=== PATIENT | female | born 1935 | race Hispanic/Latino ===

== ENCOUNTER 2018-08-11 12:40 | Outpatient (CLI) | payer MEDICARE ==
--- NOTE | 2018-08-11 16:39 | PET ---
PET CT FROM VERTEX OF SKULL THROUGH MID THIGHS: Date: 08/11/18 INDICATION: History of malignant neoplasm of the salivary glands. TECHNIQUE: Multiple PET images from the vertex through the mid thighs following IV administration of 11.4 mCi F1 8-FDG IV. CT images were obtained for attenuation correction purposes only. FINDINGS: Biodistribution for the examination appears acceptable. Head/Neck: There is a large, slightly hyperdense, hypermetabolic mass centered within the deep and superficial l obes of the left parotid gland measuring 4.6 cm with a peak SUV uptake of 12 and a mean uptake of 10. 78. There are numerous enlarged left Level IIA and IIB enlarged lymph nodes. One of the largest left leve l IIA lymph node is seen on image [address] series measuring 1.7 cm with a peak SUV uptake o f 10.88 and a mean uptake of 9.65. The largest left Level IIB lymph node measures 11.0 mm on image 59 with a peak SUV uptake of 8.09 and a mean uptake of 5.89. No additional hypermetabolic lymphadenopat hy or mass is demonstrated. Chest: No hypermetabolic pulmonary nodule or pleural effusion is demonstrated. No hypermetabolic lymphadenop athy is present. Abdomen/Pelvis: No hypermetabolic lymphadenopathy or mass is identified. No ascites is present. There is moderate dis tention of the bladder, which is nonspecific. Skin/Osseous Structures: No hypermetabolic skin or osseous lesion is identified. IMPRESSION: Abnormal PET CT: 1. There is a large hypermetabolic mass involving the left parotid gland, likely corresponding to th e patient's known salivary gland malignancy. 2. There are multiple enlarged hypermetabolic left Level IIA and IIB lymph nodes consistent with reg ional lymph node spread. 3. No evidence of hypermetabolic metastatic disease to the chest, abdomen, pelvis, skin , or osseous structures. POS: [facility]
== END 2018-08-11 12:41 | disposition home or self-care (01) ==
LOC: PET 12:40
PROVIDERS: ATTEND Internal Medicine Hematology & Oncology
DX: C76.0 Malignant neoplasm of head, face and neck (principal); K11.8 Other diseases of salivary glands
CPT/HCPCS: 78815; A9552

== ENCOUNTER 2018-08-24 08:13 | Outpatient (CLI) | payer MEDICARE ==
--- NOTE | 2018-08-24 12:07 | MRI ---
MRI BRAIN WITH AND WITHOUT CONTRAST: Date: 08/24/18 INDICATIONS: Malignant neoplasm of parotid gland. FINDINGS: Images through the base of the skull reveal abnormal signal involving the left parotid gland. This gl and shows diffuse enhancement and enlarged. This parotid mass involves the deep and superficial lobe s of the parotid on the left. The deep lobe is significantly enlarged on the left compared to the rig ht with extension into the stock associate space. No definite involvement of the pterygoid muscles identif ied. The ventricles have normal size and position. There is mild cortical atrophy. Mild chronic ischemic w holly matter change. No evidence of restricted diffusion. There is no evidence of brain parenchymal en hancement or mass. There is no evidence of infarct. IMPRESSION: 1. The parotid gland is partially imaged on this exam. The parotid gland shows diffuse enlargement a nd enhancement with involvement of both superficial and deep parotid lobes. 2. Brain shows mild chronic ischemic change without evidence of brain mass or metastasis. POS: [facility]
--- NOTE | 2018-08-24 12:33 | MRI ---
MRI NECK WITH AND WITHOUT CONTRAST: Multiplanar, multisequential imaging of neck obtained. Postcontrast images were obtained after admin istration of IV MultiHance. INDICATION: Malignant neoplasm of parotid gland. COMPARISON: Correlation is made to PET CT of 08/11/2018. FINDINGS: Diffuse abnormal signal involves the entire left parotid gland. There is enlargement and abnormal en hancement involving superficial and deep lobes of the parotid. Findings are consistent with diffuse left parotid neoplasm. There are numerous enlarged lymph nodes along the inferior margin of this left parotid gland. These would represent enlarged level II lymph nodes on the left neck with a large 2A lymph node measu ring up to 2.0 cm. Numerous other lymph nodes in this region measure 1.0 to 1.5 cm. The submandibular glands unremarkable. Thyroid unremarkable. No other significant adenopathy is seen in the neck at the other lymph node levels. Nasopharynx and hypopharynx unremarkable. Retropharyngeal space and parapharyngeal space unremarkabl e. The hypopharynx and larynx are unremarkable. IMPRESSION: Diffusely enlarged and abnormally enhancing left parotid gland involving both superficial and deep lo bes. There is associated adenopathy along the inferior SPECT of this left parotid gland at level 2 c orresponding to the PET scan findings. POS: [facility]
[2018-08-24] MEDS ORDERED: Gadobenate Dimeglumine 529 MG/1 ML (20ML VIAL) ONE (15:17)
== END 2018-08-24 08:14 | disposition home or self-care (01) ==
LOC: MRI 08:13
PROVIDERS: ATTEND Internal Medicine Hematology & Oncology
DX: C07 Malignant neoplasm of parotid gland (principal)
CPT/HCPCS: 70543; 70553; A9579

== ENCOUNTER 2018-08-26 09:15 | Day surgery (SDC) | payer MEDICARE ==
[2018-08-25 17:04] VITALS: BMI 21.3
[2018-08-26] MEDS ORDERED: Bupivacaine/Epinephrine 0.25% 30 ML VIAL ONE (09:56)
[2018-08-26] MEDS ORDERED: Lidocaine 2% PF Inj 2 ML VIAL ONE (09:56)
[2018-08-26 09:58] LABS: #Eosinphils 0.2 thou/uL (0.0-0.7); #Monocytes 0.7 thou/uL (0.11-0.59); #Neutrophils 2.5 thou/uL (1.40-6.50); %Basophils 0.8 % (0.0-1.0); %Eosinophils 3.3 % (0.0-10.0); %Lymphocytes 35.9 % (21.0-51.0); %Monocytes 13.4 % (0.0-10.0); %Neutrophils 46.6 % (42.0-75.0); Hemoglobin 11.4 g/dL (12.0-16.0); Mean Corpuscular HGB CONC 33.2 g/dL (32.0-36.0); Mean Corpuscular Hemoglobin 30.6 pg (27.0-31.0); Mean Corpuscular Volume 92.3 fL (78.0-98.0); Mean Platelet Volume 6.8 fL (7.4-10.4); Platelet Count 313 thou/uL (130-400); RBC Distribution Width 12.1 % (11.5-14.5); Red Blood Cell (RBC) Count 3.73 mill/uL (4.20-5.40); White Blood Cell (WBC) Count 5.5 thou/uL (4.8-10.8)
[2018-08-26] MEDS ORDERED: CEFAZOLIN/Water 2 GM/20 ML SYRINGE ONE (10:05)
[2018-08-26 10:13] LABS: Anion Gap 12 mmol/L (10-20); BUN (Urea Nitrogen) 29 mg/dL (9.8-20.1); Calc. Creatinine Clearance 36 mL/min (70-130); Calcium 9.7 mg/dL (7.8-10.44); Carbon Dioxide 26 mmol/L (23-31); Chloride 101 mmol/L (98-107); Estimated GFR-MDRD 46; Glucose 106 mg/dL (83-110); Potassium 4.3 mmol/L (3.5-5.1); Sodium 135 mmol/L (136-145)
--- NOTE | 2018-08-26 11:53 | RAD ---
PORTABLE CHEST: HISTORY: Status post Mediport placement. FINDINGS: Heart size is at the upper limits of normal. There are atherosclerotic changes of the aorta. The maddi ngs are clear of infiltrates. A right-sided Mediport catheter has been placed. The catheter tip ove rlies the superior vena cava. No signs of pneumothorax. The bones appear demineralized. IMPRESSION: Placement of right-sided Mediport catheter. The catheter tip overlies the superior vena cava. There are no sign of pneumothorax. POS: [facility]
[2018-08-26] MEDS ORDERED: Ondansetron HCl/PF 4 MG/2 ML Vial ONE (17:26)
[2018-08-26] MEDS ORDERED: PROPOFOL 200 MG/20 ML VIAL ONE (17:26)
--- NOTE | 2018-08-27 16:37 | PDOC.OP ---
Operative Note - Operative Note Operative Note: PROCEDURE: Right subclavian MediPort placement with fluoroscopic guidance SURGEON: Imelda Holguin M.D. 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 This is felt likely to be metastatic from a lesion on her left eyelid. Chemotherapy has been recommended and the oncologist has requested MediPort placement for this. OPERATIVE PROCEDURE IN DETAIL: After informed consent was obtained and appropriate preoperative antibiotics were administered, the patient was taken to the operating room and placed in supine position and monitored anesthesia care was administered. The patient was then placed in Trendelenburg position and the subclavian vein accessed easily on the first attempt with excellent flow of dark venous non-pulsatile blood. A wire threaded easily and was confirmed to be in the superior vena cava by fluoroscopy. Additional local anesthesia was infused to the skin and subcutaneous tissues lateral and inferior to the access site. The skin incision was extended from the wire laterally and a subcutaneous pocket developed inferiorly. A Mediport was obtained and confirmed to fit in the subcutaneous pocket. This was secured inferiorly to the pectoralis fascia with a Prolene suture, which was clamped, but not tied. The dilator and sheath were then placed over the wire and the dilator and wire removed leaving the sheath in place. The clamped MediPort tubing was tunneled through the sheath, which was then split and removed leaving the MediPort tubing in place. The tubing was adjusted until the tip was confirmed by fluoroscopy to be in the superior vena cava just above the atrium. The tubing was clamped at the skin level and cut and the tubing secured to the port, which was then placed in the subcutaneous pocket. The previously placed suture was secured and two additional sutures were placed to fix the port in place within the pocket. The port was aspirated with the Hawkins needle and had excellent flow of dark venous non-pulsatile blood and easily flushed without resistance. The subcutaneous tissues were closed with a running Monocryl suture, following which the skin was closed with a running subcuticular Monocryl suture. Dermabond dressings were placed and the hub was again accessed through the skin and confirmed to easily aspirate and easily flush. The course of the catheter was confirmed by fluoroscopy to be smooth with the tip appropriately located in the superior vena cava. The patient was taken her back to the day stay unit in good condition. Estimated blood loss was minimal. There were no complications. There were no specimens.
== END 2018-08-26 12:20 | disposition home or self-care (01) ==
LOC: SDC 09:15
PROVIDERS: ATTEND Surgery
PROC: 02HV33Z Insertion of Infusion Device into Superior Vena Cava, Percutaneous Approach (ICD-10-PCS; principal; 2018-08-26)
DX: C07 Malignant neoplasm of parotid gland (principal); C44.99 Other specified malignant neoplasm of skin, unspecified; I10 Essential (primary) hypertension; E11.40 Type 2 diabetes mellitus with diabetic neuropathy, unspecified; E78.5 Hyperlipidemia, unspecified; G40.909 Epilepsy, unspecified, not intractable, without status epilepticus; Z79.899 Other long term (current) drug therapy; Z88.2 Allergy status to sulfonamides; Z88.8 Allergy status to other drugs, medicaments and biological substances; Z91.018 Allergy to other foods
CPT/HCPCS: 36415; 71045; 80048; 85025; J1642

== ENCOUNTER 2018-12-17 09:08 | Outpatient (CLI) | payer MEDICARE ==
--- NOTE | 2018-12-17 13:40 | PET ---
RADIONUCLIDE PET SCAN WITH CT ATTENUATION CORRECTION: HISTORY: Left parotid cancer with chemotherapy. Restaging. COMPARISON: 08/11/18. FINDINGS: At the left side of the face, at the parotid bed, there is now only minimally increased radiotracer u ptake. Maximum SUV along the posterior margin of the area where previous abnormal uptake is present, is now 2.8. No new abnormalities are evident about the head or neck. Physiologic uptake of radiotracer within the enteric system and along each urinary tract. Now within the far anterior margin of the lateral segment left liver lobe, a focus of increased radiotracer upta ke shows a maximum SUV of 4.2, and is associated with a small lobulation on the nondiagnostic CT atte nuation correction images. A well-defined mass is not visible. Within the anterior segment of right liver lobe, immediately posterior to the gallbladder fossa, is a focus of increased radiotracer uptake with maximum SUV of 8.1. A subtle hypodense mass is present on the nondiagnostic CT attenuation correction images. No other new areas of abnormal uptake are apparent. IMPRESSION: 1. Two new hypermetabolic lesions within the liver as detailed above. Suspicious for metastatic dise ase. Please consider dedicated CT liver, with and without iv contrast, for better characterization. 2. Interval resolution of the large mass and abnormal activity at the left parotid gland. Now only m inimally increased uptake. POS: [facility]
== END 2018-12-17 09:09 | disposition home or self-care (01) ==
LOC: PET 09:08
PROVIDERS: ATTEND Internal Medicine Hematology & Oncology
DX: C07 Malignant neoplasm of parotid gland (principal); K76.9 Liver disease, unspecified; R91.8 Other nonspecific abnormal finding of lung field
CPT/HCPCS: 78815; A9552; 80053; 84443

== ENCOUNTER 2019-01-12 08:48 | Outpatient (CLI) | payer MEDICARE ==
[2019-01-12] MEDS ORDERED: Gadobenate Dimeglumine 529 MG/1 ML (20ML VIAL) ONE (10:05)
--- NOTE | 2019-01-12 10:42 | MRI ---
MRI OF THE ABDOMEN WITHOUT AND WITH CONTRAST: Date: 01/12/19 COMPARISON: PET CT dated 12/17/18. HISTORY: Neoplasm of the parotid gland. Hypermetabolic lesions in the liver seen on prior PET CT. The patient is asymptomatic. TECHNIQUE: Multiplanar, multisequence MR images were obtained in the abdomen without and with IV Contrast. FINDINGS: There are approximately 8-10 well circumscribed lesions scattered throughout the liver. The largest s een in the right lobe measuring 2.4 cm in greatest dimension. These lesions demonstrate enhancement a nd do not demonstrate significant washout. No fill-in of the lesions is seen on the delayed phase eliseo ges. These lesions are most suspicious for hepatic metastatic disease. No biliary dilatation is seen. The gallbladder, kidneys, adrenal glands, spleen, and pancreas are unr emarkable. No abdominal adenopathy is seen. No marrow signal abnormality is present. The visualized inferior thorax is unremarkable. IMPRESSION: Scattered lesions throughout the liver are suspicious for hepatic metastasis. POS: [facility]
== END 2019-01-12 08:49 | disposition home or self-care (01) ==
LOC: BICMRI 08:48
PROVIDERS: ATTEND Internal Medicine Hematology & Oncology
DX: C07 Malignant neoplasm of parotid gland (principal); K76.9 Liver disease, unspecified
CPT/HCPCS: 74183; A9577

== ENCOUNTER 2019-01-26 08:33 | Day surgery (SDC) | payer MEDICARE ==
[2019-01-25 09:33] VITALS: BMI 23.8
[2019-01-26 09:05] LABS: Hemoglobin 10.1 g/dL (12.0-16.0); Mean Corpuscular HGB CONC 31.8 g/dL (32.0-36.0); Mean Corpuscular Hemoglobin 30.3 pg (27.0-31.0); Mean Corpuscular Volume 95.3 fL (78.0-98.0); Mean Platelet Volume 6.1 fL (7.4-10.4); Platelet Count 175 thou/uL (130-400); RBC Distribution Width 12.4 % (11.5-14.5); Red Blood Cell (RBC) Count 3.32 mill/uL (4.20-5.40)
[2019-01-26 09:08] LABS: PTT 25.6 SEC (22.9-36.1); Prothrombin Time 13.1 SEC (12.0-14.7)
[2019-01-26] MEDS ORDERED: Sodium Bicarbonate 2.5 MEQ/5 ML VIAL ONE (10:09)
[2019-01-26] MEDS ORDERED: Midazolam HCl 2 mg/2 ml Vial ONE (10:09)
[2019-01-26] MEDS ORDERED: Fentanyl 100 MCG/2 ML VIAL ONE (10:10)
[2019-01-26 11:31] VITALS: BP 138/59; TEMP 98
--- NOTE | 2019-01-26 13:31 | CT ---
CT GUIDED LIVER MASS BIOPSY: Date: 01/26/19 HISTORY: New hepatic masses which are FDG-avid. Primary parotid cancer. COMPARISON: Multiple prior examinations, most recent MRI 01/12/19. FINDINGS: The patient was brought to the CT suite. All questions were answered. Informed consent obtained. Time out performed. The largest lesion within hepatic segment V, adjacent to the gallbladder, was accessed using an 18 ga uge BioPince needle. A total of two cores were obtained. Pathology confirmed adequacy. This was done after adequate local anesthesia with 6 mL of buffered lidocaine. IMPRESSION: Technically successful CT guided liver mass biopsy. Pathology confirmed adequacy. POS: [facility]
== END 2019-01-26 13:10 | disposition home or self-care (01) ==
LOC: RAD 08:33
PROVIDERS: ATTEND Radiology Diagnostic Radiology
PROC: 0FB13ZX Excision of Right Lobe Liver, Percutaneous Approach, Diagnostic (ICD-10-PCS; principal; 2019-01-26)
DX: C22.7 Other specified carcinomas of liver (principal); I10 Essential (primary) hypertension; E11.9 Type 2 diabetes mellitus without complications; E78.00 Pure hypercholesterolemia, unspecified; G40.909 Epilepsy, unspecified, not intractable, without status epilepticus; Z90.49 Acquired absence of other specified parts of digestive tract; Z88.1 Allergy status to other antibiotic agents; Z88.2 Allergy status to sulfonamides; Z88.6 Allergy status to analgesic agent; Z91.018 Allergy to other foods; Z85.858 Personal history of malignant neoplasm of other endocrine glands; Z92.21 Personal history of antineoplastic chemotherapy; Z92.3 Personal history of irradiation; Z79.899 Other long term (current) drug therapy; Z98.890 Other specified postprocedural states
CPT/HCPCS: 36415; 47000; 77002; 85027; 85610; 85730; 88305; 88333; 88334; 88341; 88342; J2250; J3010

== ENCOUNTER 2019-03-24 10:05 | Day surgery (SDC) | payer MEDICARE ==
[~2019-03-24 10:05] MED LIST: CARBOPLATIN IVPB SCH; Palonosetron HCl 0.25 MG in Sodium Chloride 0.9% 50 ML IVPB SCH; SODIUM CHLORIDE 0.9% IVPB SCH
[2019-03-24] MEDS ORDERED: Sodium Chloride 0.9% 20 ML ONE (10:41)
[2019-03-24] MEDS ORDERED: CARBOPLATIN IVPB SCH (11:30)
[2019-03-24] MEDS ORDERED: SODIUM CHLORIDE 0.9% IVPB SCH (11:30)
[2019-03-24 12:06] VITALS: BP 127/60; TEMP 97.8
== END 2019-03-24 13:29 | disposition home or self-care (01) ==
LOC: ONC/OP 10:05
PROVIDERS: ATTEND Internal Medicine Hematology & Oncology
DX: Z51.11 Encounter for antineoplastic chemotherapy (principal); C07 Malignant neoplasm of parotid gland; C7A.1 Malignant poorly differentiated neuroendocrine tumors; Z88.1 Allergy status to other antibiotic agents; Z88.8 Allergy status to other drugs, medicaments and biological substances
CPT/HCPCS: 36415; 80053; 82248; 83615; 84100; 84550; 96375; 96413; 96417; J1100; J1642; J2469; J7050; J9045; J9181

== ENCOUNTER 2019-03-25 09:55 | Day surgery (SDC) | payer MEDICARE ==
[2019-03-25] MEDS ORDERED: Sodium Chloride 0.9% 20 ML ONE (10:24)
[2019-03-25 10:33] VITALS: BP 108/53; TEMP 98.3
== END 2019-03-25 15:25 | disposition home or self-care (01) ==
LOC: ONC/OP 09:55
PROVIDERS: ATTEND Internal Medicine Hematology & Oncology
DX: Z51.11 Encounter for antineoplastic chemotherapy (principal); C07 Malignant neoplasm of parotid gland; C7A.1 Malignant poorly differentiated neuroendocrine tumors; Z88.2 Allergy status to sulfonamides; Z88.8 Allergy status to other drugs, medicaments and biological substances; Z91.018 Allergy to other foods
CPT/HCPCS: 96413; J1642; J7050; J9181

== ENCOUNTER 2019-03-26 09:11 | Day surgery (SDC) | payer MEDICARE ==
[~2019-03-26 09:11] MED LIST changes: -CARBOPLATIN IVPB SCH; -Palonosetron HCl 0.25 MG in Sodium Chloride 0.9% 50 ML IVPB SCH; +Pegfilgrastim Onpro 6 MG/0.6 ML SQ SCH; -SODIUM CHLORIDE 0.9% IVPB SCH
[2019-03-26] MEDS ORDERED: Sodium Chloride 0.9% 20 ML ONE (10:39)
[2019-03-26 11:43] VITALS: BP 134/62; TEMP 98.1
== END 2019-03-26 11:44 | disposition home or self-care (01) ==
LOC: ONC/OP 09:11
PROVIDERS: ATTEND Internal Medicine Hematology & Oncology
DX: Z51.11 Encounter for antineoplastic chemotherapy (principal); C07 Malignant neoplasm of parotid gland; C7A.1 Malignant poorly differentiated neuroendocrine tumors; Z88.1 Allergy status to other antibiotic agents; Z88.2 Allergy status to sulfonamides; Z88.8 Allergy status to other drugs, medicaments and biological substances; Z91.018 Allergy to other foods
CPT/HCPCS: 96377; 96413; J1642; J2505; J7050; J9181

== ENCOUNTER 2019-04-14 10:47 | Day surgery (SDC) | payer MEDICARE ==
[~2019-04-14 10:47] MED LIST changes: +CARBOPLATIN IVPB SCH; +Palonosetron HCl 0.25 MG in Sodium Chloride 0.9% 50 ML IVPB SCH; -Pegfilgrastim Onpro 6 MG/0.6 ML SQ SCH; +SODIUM CHLORIDE 0.9% IVPB SCH
[2019-04-14] MEDS ORDERED: Sodium Chloride 0.9% 20 ML ONE (11:02)
[2019-04-14] MEDS ORDERED: CARBOPLATIN IVPB SCH (11:30)
[2019-04-14] MEDS ORDERED: diphenhydrAMINE 25 MG CAP PO SCH (11:30)
[2019-04-14] MEDS ORDERED: SODIUM CHLORIDE 0.9% IVPB SCH (11:30)
[2019-04-14 19:30] VITALS: BP 180/89; TEMP 98
== END 2019-04-14 21:16 | disposition home or self-care (01) ==
LOC: ONC/OP 10:47
PROVIDERS: ATTEND Internal Medicine Hematology & Oncology
DX: Z51.11 Encounter for antineoplastic chemotherapy (principal); C07 Malignant neoplasm of parotid gland; C7A.1 Malignant poorly differentiated neuroendocrine tumors; Z88.1 Allergy status to other antibiotic agents; Z88.2 Allergy status to sulfonamides; Z88.8 Allergy status to other drugs, medicaments and biological substances; Z91.018 Allergy to other foods
CPT/HCPCS: 36415; 36430; 80053; 82248; 82728; 83615; 84100; 84550; 86850; 86900; 86901; 96375; 96413; 96417; J1100; J1642; J2469; J7050; J9045; J9181; P9016; Q0163

== ENCOUNTER 2019-04-15 11:05 | Day surgery (SDC) | payer MEDICARE ==
[2019-04-15 11:13] VITALS: BP 138/61; TEMP 97.8
[2019-04-15] MEDS ORDERED: Sodium Chloride 0.9% 20 ML ONE (11:35)
== END 2019-04-15 13:15 | disposition home or self-care (01) ==
LOC: ONC/OP 11:05
PROVIDERS: ATTEND Internal Medicine Hematology & Oncology
DX: Z51.11 Encounter for antineoplastic chemotherapy (principal); C07 Malignant neoplasm of parotid gland; C7A.1 Malignant poorly differentiated neuroendocrine tumors; Z88.1 Allergy status to other antibiotic agents; Z88.2 Allergy status to sulfonamides; Z88.8 Allergy status to other drugs, medicaments and biological substances; Z91.018 Allergy to other foods
CPT/HCPCS: 96413; J1642; J7050; J9181

== ENCOUNTER 2019-04-16 08:55 | Day surgery (SDC) | payer MEDICARE ==
[~2019-04-16 08:55] MED LIST changes: -CARBOPLATIN IVPB SCH; -Palonosetron HCl 0.25 MG in Sodium Chloride 0.9% 50 ML IVPB SCH; +Pegfilgrastim Onpro 6 MG/0.6 ML SQ SCH; -SODIUM CHLORIDE 0.9% IVPB SCH
[2019-04-16] MEDS ORDERED: Sodium Chloride 0.9% 20 ML ONE (09:29)
[2019-04-16 10:07] VITALS: BP 123/60; TEMP 98.2
== END 2019-04-16 11:55 | disposition home or self-care (01) ==
LOC: ONC/OP 08:55
PROVIDERS: ATTEND Internal Medicine Hematology & Oncology
DX: Z51.11 Encounter for antineoplastic chemotherapy (principal); C07 Malignant neoplasm of parotid gland; C7A.1 Malignant poorly differentiated neuroendocrine tumors; Z88.1 Allergy status to other antibiotic agents; Z88.6 Allergy status to analgesic agent; Z88.2 Allergy status to sulfonamides; Z91.018 Allergy to other foods; Z79.899 Other long term (current) drug therapy
CPT/HCPCS: 96377; 96413; J1642; J2505; J7050; J9181

== ENCOUNTER 2019-05-05 10:27 | Day surgery (SDC) | payer MEDICARE, OTHER ==
[2019-05-05] MEDS ORDERED: Sodium Chloride 0.9% 20 ML ONE (10:45)
[2019-05-05] MEDS ORDERED: CARBOPLATIN IVPB SCH (11:00)
[2019-05-05] MEDS ORDERED: Dexamethasone 10 MG in Sodium Chloride 0.9% 50 ML IVPB SCH (11:00)
[2019-05-05] MEDS ORDERED: Palonosetron HCl 0.25 MG in Sodium Chloride 0.9% 50 ML IVPB SCH (11:00)
[2019-05-05] MEDS ORDERED: SODIUM CHLORIDE 0.9% IVPB SCH ×2 (11:00→11:15)
[2019-05-05] MEDS ORDERED: ETOPOSIDE IVPB SCH (11:15)
[2019-05-05 12:35] VITALS: BP 129/56; TEMP 98
== END 2019-05-05 15:35 | disposition home or self-care (01) ==
LOC: ONC/OP 10:27
PROVIDERS: ATTEND Internal Medicine Hematology & Oncology
DX: Z51.11 Encounter for antineoplastic chemotherapy (principal); C07 Malignant neoplasm of parotid gland; C7A.1 Malignant poorly differentiated neuroendocrine tumors
CPT/HCPCS: 36415; 80053; 82248; 83615; 84100; 84436; 84443; 84550; 96375; 96413; 96417; J1100; J1642; J2469; J7050; J9045; J9181

== ENCOUNTER 2019-05-06 10:02 | Day surgery (SDC) | payer MEDICARE, OTHER ==
[2019-05-06] MEDS ORDERED: ETOPOSIDE IVPB SCH (10:15)
[2019-05-06] MEDS ORDERED: SODIUM CHLORIDE 0.9% IVPB SCH (10:15)
[2019-05-06] MEDS ORDERED: Acetaminophen 500 MG TAB PO SCH (10:15)
[2019-05-06] MEDS ORDERED: Dexamethasone 10 MG in Sodium Chloride 0.9% 50 ML IVPB SCH (10:15)
[2019-05-06] MEDS ORDERED: diphenhydrAMINE 25 MG CAP PO SCH (10:15)
[2019-05-06] MEDS ORDERED: Sodium Chloride 0.9% 40 ML ONE (11:10)
[2019-05-06 14:48] VITALS: BP 134/61; TEMP 98.5
== END 2019-05-06 15:09 | disposition home or self-care (01) ==
LOC: ONC/OP 10:02
PROVIDERS: ATTEND Internal Medicine Hematology & Oncology
PROC: 30233N1 Transfusion of Nonautologous Red Blood Cells into Peripheral Vein, Percutaneous Approach (ICD-10-PCS; principal; 2019-05-06)
DX: D64.9 Anemia, unspecified (principal); D69.6 Thrombocytopenia, unspecified; Z88.2 Allergy status to sulfonamides; Z88.1 Allergy status to other antibiotic agents; Z88.6 Allergy status to analgesic agent; Z91.018 Allergy to other foods; Z79.899 Other long term (current) drug therapy
CPT/HCPCS: 36430; 86850; 86900; 86901; 96375; 96413; J1100; J1642; J7050; J9181; P9016; Q0163

== ENCOUNTER 2019-05-07 09:56 | Day surgery (SDC) | payer MEDICARE ==
[~2019-05-07 09:56] MED LIST changes: +Dexamethasone 10 MG in Sodium Chloride 0.9% 50 ML IVPB SCH; +ETOPOSIDE IVPB SCH; +SODIUM CHLORIDE 0.9% IVPB SCH
[2019-05-07 10:21] VITALS: BP 128/62; TEMP 98.4
[2019-05-07] MEDS ORDERED: Sodium Chloride 0.9% 20 ML ONE (11:02)
== END 2019-05-07 13:28 | disposition home or self-care (01) ==
LOC: ONC/OP 09:56
PROVIDERS: ATTEND Internal Medicine Hematology & Oncology
DX: Z51.11 Encounter for antineoplastic chemotherapy (principal); C07 Malignant neoplasm of parotid gland; C7A.1 Malignant poorly differentiated neuroendocrine tumors; Z88.1 Allergy status to other antibiotic agents; Z88.6 Allergy status to analgesic agent
CPT/HCPCS: 96375; 96377; 96413; J1100; J1642; J2505; J7050; J9181

== ENCOUNTER 2019-05-26 10:10 | Day surgery (SDC) | payer MEDICARE ==
[2019-05-26] MEDS ORDERED: Acetaminophen 500 MG TAB PO SCH (10:45)
[2019-05-26] MEDS ORDERED: diphenhydrAMINE 25 MG CAP PO SCH (10:45)
[2019-05-26 14:53] VITALS: TEMP 97.5
[2019-05-26 16:24] VITALS: BP 153/68
== END 2019-05-26 16:24 | disposition home or self-care (01) ==
LOC: ONC/OP 10:10
PROVIDERS: ATTEND Internal Medicine Hematology & Oncology
PROC: 30233N1 Transfusion of Nonautologous Red Blood Cells into Peripheral Vein, Percutaneous Approach (ICD-10-PCS; principal; 2019-05-26)
DX: D64.9 Anemia, unspecified (principal); D69.6 Thrombocytopenia, unspecified; Z88.1 Allergy status to other antibiotic agents; Z88.2 Allergy status to sulfonamides; Z88.8 Allergy status to other drugs, medicaments and biological substances; Z91.018 Allergy to other foods
CPT/HCPCS: 36430; 86850; 86900; 86901; P9016; Q0163

== ENCOUNTER 2019-07-14 08:35 | Outpatient (CLI) | payer MEDICARE ==
[2019-07-14] MEDS ORDERED: Iopamidol 370 76% 100 ML VIAL ONE (09:36)
--- NOTE | 2019-07-14 15:21 | CT ---
CT ABDOMEN AND PELVIS WITH IV CONTRAST AND WITH ORAL CONTRAST: 07/14/19 Axial tomograms with multiplanar reconstruction. 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 COMPARISON: Comparison made to CT abdomen and pelvis dated 05/03/19. FINDINGS: Lung bases are clear. Liver again shows diffuse metastatic disease. There are numerous lesions throughout the liver which a re too numerous to count. These lesions have increased in size and number when compared to 05/03/19. Numerous lesions now measure in 4 to 5 cm range. The largest lesions in the medial right lower lobe j ust posterior to the gallbladder measures 6.3 cm today. It previously measured 4.2 cm. Spleen and pancreas unremarkable. The gallbladder is distended. Gallbladder wall thickness is upper normal. Fahad hepatis and hepatic gastric adenopathy again noted. There is a portacaval lymph node compressin g the main portal vein which measures 2.7 cm. This node is similar in size to the prior study at [facility] h time it measured 2.6 cm. There is periaortic adenopathy which has increased. There is a lymph node to the left of the aorta just inferior to the left renal vein measuring 1.8 cm today. This lymph node has significantly enlarged since last exam at which time it measured approximately 1.0 cm. There is an aortocaval lymph node at this time level to the right of the aorta which is also significantly enl arged since the prior study and now measures 1.9 cm. Small bowel loops show mild nonspecific distention without dilatation. Stool throughout the colon. Images through the pelvis show a distended bladder. Urinary retention should be considered given the enlarged bladder. The uterus and adnexa appear unremarkable. Aorta is calcified and tortuous. Osseous structures show degenerative spine changes and degenerative changes at both hips. No focal lytic or blastic lesion identified. IMPRESSION: 1. Increased liver metastatic disease with increased size and number of lesions when compared to prior study. 2. Increasing adenopathy in the upper abdomen as noted above. 3. Distended urinary bladder. POS: [facility]
== END 2019-07-14 08:36 | disposition home or self-care (01) ==
LOC: CT 08:35
PROVIDERS: ATTEND Internal Medicine Hematology & Oncology
DX: C07 Malignant neoplasm of parotid gland (principal); C7A.1 Malignant poorly differentiated neuroendocrine tumors; C78.7 Secondary malignant neoplasm of liver and intrahepatic bile duct; N32.89 Other specified disorders of bladder; R59.0 Localized enlarged lymph nodes
CPT/HCPCS: 74177; 82565; Q9967